=== PATIENT | female | born 1985 | race Caucasian/White ===

== ENCOUNTER 2016-08-05 16:41 | Emergency (ER) | payer OTHER ==
[~2016-08-05] VITALS: Ht 167.6 cm; Wt 74.5 kg
[2016-08-05] MEDS ORDERED: SODIUM CHLORIDE 0.9% 1,000ML IVBOLUS ONE (17:00)
[2016-08-05] MEDS ORDERED: ONDANSETRON 2MG/ML, 2ML IVPush ONE (17:00)
[2016-08-05] MEDS ORDERED: SODIUM CHLORIDE FLUSH 10ML SYR IVF ONE (17:00)
[2016-08-05 17:31] LABS: ASPARTATE AMINO TRANSFERASE 18 U/L (15-37); BLOOD UREA NITROGEN 17 mg/dL (7-18)
[2016-08-05] MEDS ORDERED: ONDANSETRON 2MG/ML, 2ML ONE (17:42)
[2016-08-05] MEDS ORDERED: NAPR220C2 PO (19:12)
[2016-08-05 19:24] VITALS: BP 102/61
== END 2016-08-05 19:27 | disposition home or self-care (01) ==
LOC: ED 19:21
DX: N80.9 Endometriosis, unspecified (principal); Z90.49 Acquired absence of other specified parts of digestive tract
CPT/HCPCS: 36415; 76830; 80053; 81003; 84703; 85025; 96361; 96374; 99285; J2405; J7030